=== PATIENT | male | born 1955 | race Caucasian/White ===

== ENCOUNTER 2020-04-23 14:17 | Emergency (ER) | payer BC ==
[2020-04-23] MEDS ORDERED: Sodium Chloride 0.9% 10 ML Syringe FLUSH PRN (14:23)
[2020-04-23] MEDS ORDERED: methylPREDNISolone Sodium Succinate 125 MG/2 ML SDV IVPUSH ONE (14:23)
[2020-04-23] MEDS ORDERED: Famotidine 20 MG/2 ML SDV IVPUSH ONE (14:23)
[2020-04-23] MEDS ORDERED: diphenhydrAMINE 50 MG/ML SDV IVPUSH ONE (14:23)
--- NOTE | 2020-04-23 14:39 | EDM.PDOC ---
ED HPI GENERAL MEDICAL PROBLEM - General Chief Complaint: Allergic Reaction Stated Complaint: ALERGIC REACTION Time Seen by Provider: 04/23/20 14:17 Source of Information: Reports: Patient History Limitations: Reports: No Limitations - History of Present Illness INITIAL COMMENTS - FREE TEXT/NARRATIVE: 64 YO WM PRESENTS TO ER WITH ALLERGIC REACTION AFTER GETTING IV CONTRAST FOR CAT SCAN PROCEDURE. PT REPORTS AFTER PROCEDURE HE BEGAN TO FEEL ITCHY AND NOTICED WELTS ALL OVER HIS BODY. PT DENIES DIFFICULTY SWALLOWING, SHORTNESS OF BREATH, CHEST TIGHTNESS OR LIGHTHEADEDNESS. PT REPORTS HISTORY OF SULFA/PCN/ALOE/PEPPERMINT ALLERGIES. PT DENIES ANY HISTORY OF ANAPHYLAXIS OR SEVERE ALLERGIC REACTION TO ANY OF THE ABOVE. Onset: Sudden Onset Date: 04/23/20 Location: Reports: Generalized Quality: Reports: Other (ITCHING) Improves with: Reports: None Worsens with: Reports: None Associated Symptoms: Reports: No Other Symptoms - Related Data Allergies Allergy/AdvReac Type Severity Reaction Status Date / Time Sulfa (Sulfonamide Allergy Severe Airway Verified 12/23/13 06:55 Antibiotics) Tightness Penicillins Allergy Intermediate Rash Verified 12/23/13 06:55 aloe vera Allergy Mild Rash Verified 12/23/13 06:55 Home Meds: Home Meds Pantoprazole [Protonix] 20 mg PO DAILY PRN 12/19/13 [History] Volodymyr Cit/Mag/D3/Zn/Archival Studies Professor/Getachew/Bor [Citracal-Vit D + Magnesium] 1 tab PO DAILY 12/23/13 [History] betaine HCL [Betaine] 650 mg PO DAILY 12/23/13 [History] Famotidine [Pepcid] 20 mg PO BID #10 tab 04/23/20 [Rx] Fluticasone Propionate [Flonase] 1 spray NASBOTH DAILY 04/23/20 [History] Lutein/Minerals/Vit A,C & E [Ocuvite] 1 tab PO DAILY 04/23/20 [History] Rosuvastatin [Crestor] 5 mg PO DAILY 04/23/20 [History] diphenhydrAMINE [Benadryl] 50 mg PO Q6HR #30 cap 04/23/20 [Rx] predniSONE [Prednisone] 20 mg PO DAILY #9 tablet 04/23/20 [Rx] ED ROS ALLERGIC REACTION - Review of Systems Review Of Systems: See Below Constitutional: Reports: No Symptoms HEENT: Reports: No Symptoms Respiratory: Reports: No Symptoms Cardiovascular: Reports: No Symptoms Endocrine: Reports: No Symptoms GI/Abdominal: Reports: No Symptoms : Reports: No Symptoms Musculoskeletal: Reports: No Symptoms Skin: Reports: Rash Neurological: Reports: No Symptoms Psychiatric: Reports: No Symptoms Hematologic/Lymphatic: Reports: No Symptoms Immunologic: Reports: No Symptoms ED EXAM GENERAL NO PERIP PULSE - Physical Exam Exam: See Below Exam Limited By: No Limitations General Appearance: Alert, WD/WN, No Apparent Distress Throat/Mouth: Normal Inspection, Normal Lips, Normal Teeth, Normal Gums, Normal Oropharynx, Normal Voice, No Airway Compromise Head: Atraumatic, Normocephalic Neck: Normal Inspection, Supple, Non-Tender, Full Range of Motion Respiratory/Chest: No Respiratory Distress, Lungs Clear, Normal Breath Sounds, No Accessory Muscle Use, Chest Non-Tender Cardiovascular: Normal Peripheral Pulses, Regular Rate, Rhythm, No Edema, No Gallop, No JVD, No Murmur, No Rub GI/Abdominal: Normal Bowel Sounds, Soft, Non-Tender, No Organomegaly, No Distention, No Abnormal Bruit, No Mass Back Exam: Normal Inspection, Full Range of Motion, NT Extremities: Normal Inspection, Normal Range of Motion, Non-Tender, Normal Capillary Refill, No Pedal Edema Neurological: Alert, Oriented, CN II-XII Intact, Normal Cognition, Normal Gait, Normal Reflexes, No Motor/Sensory Deficits Psychiatric: Normal Affect, Normal Mood Skin Exam: Warm, Dry, Intact, Rash Lymphatic: No Adenopathy Course - Vital Signs Last Recorded V/S: Last Vital Signs Temp 36.1 C 04/23/20 14:25 Pulse 91 04/23/20 14:46 Resp 18 04/23/20 14:46 BP 127/90 04/23/20 14:46 Pulse Ox 97 04/23/20 14:46 - Orders/Labs/Meds Orders: Active Orders 24 hr Category Date Time Status Peripheral IV Care [RC] . DIRECTED Care 04/23/20 14:23 Active Sodium Chloride 0.9% [Saline Flush] Med 04/23/20 14:23 Active 10 ml FLUSH Q8HR PRN Peripheral IV Insertion Adult [OM.PC] Routine Oth 04/23/20 14:23 Ordered Medication Orders Sodium Chloride (Saline Flush) 10 ml FLUSH Q8HR PRN PRN Reason: keep vein open Last Admin: 04/23/20 14:42 Dose: 10 ml Documented by: JENNI Meds: Medications Generic Name Dose Route Start Last Admin Trade Name Freliseth PRN Reason Stop Dose Admin Sodium Chloride 10 ml 04/23/20 14:23 04/23/20 14:42 Saline Flush FLUSH 10 ml Q8HR PRN Administration keep vein open Discontinued Medications Generic Name Dose Route Start Last Admin Trade Name Royerq PRN Reason Stop Dose Admin Diphenhydramine HCl 50 mg 04/23/20 14:23 04/23/20 14:31 Benadryl IVPUSH 04/23/20 14:24 50 mg ONETIME ONE Administration Famotidine 20 mg 04/23/20 14:23 04/23/20 14:42 Pepcid IVPUSH 04/23/20 14:24 20 mg ONETIME ONE Administration Methylprednisolone Sodium Succinate 125 mg 04/23/20 14:23 04/23/20 14:29 Solu-Medrol IVPUSH 04/23/20 14:24 125 mg ONETIME ONE Administration - Re-Assessments/Exams Free Text/Narrative Re-Assessment/Exam: 04/23/20 15:14 PT REPORTS FEELING BETTER AFTER MEDICATION. PT DENIES SHORTNESS OF BREATH, DYSPHAGIA OR ANY DISTRESS AT THIS TIME Departure - Departure Time of Disposition: 15:22 Disposition: Home, Self-Care 01 Condition: Good Clinical Impression: Allergic reaction Qualifiers: Encounter type: initial encounter Qualified Code(s): T78.40XA - Allergy, u nspecified, initial encounter - Discharge Information Prescriptions: diphenhydrAMINE [Benadryl] 50 mg PO Q6HR #30 cap Famotidine [Pepcid] 20 mg PO BID #10 tab predniSONE [Prednisone] 20 mg PO DAILY #9 tablet Instructions: Drug Rash Referrals: Radha Mayberry DRAW OPERATOR [Primary Care Provider] - Forms: ED Department Discharge Additional Instructions: 1. DISCHARGE HOME 2. PREDNISONE 60MG DAILY X 3 DAYS 3. PEPCID 20MG TWICE/DAY X 3 DAYS 4. BENADRYL 50MG EVERY 6 HOURS X 3 DAYS 5. FOLLOW UP WITH PCP FOR FURTHER EVALUATION AND TREATMENT 6. RETURN TO ER FOR WORSENING SYMPTOMS Sepsis Event Note (ED) - Focused Exam Vital Signs: Vital Signs Temp Pulse Resp BP Pulse Ox 04/23/20 14:46 91 18 127/90 97 04/23/20 14:25 36.1 C 93 18 142/95 H 97 - My Orders Last 24 Hours: My Active Orders 04/23/20 14:23 Peripheral IV Care [RC] . DIRECTED Sodium Chloride 0.9% [Saline Flush] 10 ml FLUSH Q8HR PRN Peripheral IV Insertion Adult [OM.PC] Routine - Assessment/Plan Last 24 Hours: My Active Orders 04/23/20 14:23 Peripheral IV Care [RC] . DIRECTED Sodium Chloride 0.9% [Saline Flush] 10 ml FLUSH Q8HR PRN Peripheral IV Insertion Adult [OM.PC] Routine Assessment:: 1. ALLERGIC REACTION TO IV CONTRAST Plan: 1. DISCHARGE HOME 2. PREDNISONE 60MG DAILY X 3 DAYS 3. PEPCID 20MG TWICE/DAY X 3 DAYS 4. BENADRYL 50MG EVERY 6 HOURS X 3 DAYS 5. FOLLOW UP WITH PCP FOR FURTHER EVALUATION AND TREATMENT 6. RETURN TO ER FOR WORSENING SYMPTOMS
== END 2020-04-23 15:43 | disposition home or self-care (01) ==
LOC: KA.ED 14:17
DX: L29.9 Pruritus, unspecified (principal); T50.8X5A Adverse effect of diagnostic agents, initial encounter; Z88.2 Allergy status to sulfonamides; Z88.0 Allergy status to penicillin; Z91.018 Allergy to other foods; Z79.899 Other long term (current) drug therapy
CPT/HCPCS: 96374; 96375; 99283; 99283-25; J1200; J2930; J3490

== ENCOUNTER 2024-11-26 09:45 | Day surgery (SDC) | payer MEDICARE, BC ==
[~2024-11-26 09:45] MED LIST: Sodium Chloride 0.9% 10 ML Syringe FLUSH PRN
[2024-11-26] MEDS ORDERED: Propofol 200 MG/20 ML SDV ONE (10:02)
[2024-11-26] MEDS ORDERED: Midazolam 1 MG/ML 2 ML SDV ONE (10:02)
[2024-11-26] MEDS: Lactated Ringers 1,000 ML IV SCH (10:26)
[2024-11-26] MEDS ORDERED: Lactated Ringers 1,000 ML ONE (11:15)
== END 2024-11-26 12:56 | disposition home or self-care (01) ==
LOC: KA.SDS 09:45
PROVIDERS: ATTEND Family Medicine
DX: Z12.11 Encounter for screening for malignant neoplasm of colon (principal); K57.30 Diverticulosis of large intestine without perforation or abscess without bleeding; K64.8 Other hemorrhoids; Z85.038 Personal history of other malignant neoplasm of large intestine; I10 Essential (primary) hypertension; E78.2 Mixed hyperlipidemia; K21.9 Gastro-esophageal reflux disease without esophagitis; Z79.899 Other long term (current) drug therapy; Z88.2 Allergy status to sulfonamides; Z88.0 Allergy status to penicillin
CPT/HCPCS: J2250; J2704; J7120